=== PATIENT | female | born 1955 | race Caucasian/White ===

== ENCOUNTER 2017-02-10 10:46 | Day surgery (SDC) | payer OTHER ==
[~2017-02-10] VITALS: Ht 165.1 cm; Wt 93.0 kg
[~2017-02-10 10:46] MED LIST: BIOT5000 PO; HYDROmorphone 2 MG/ML VIAL IV PRN; IV RINGERS,LACTATED 1000ML 1,000 ML IV SCH; LIDOCAINE 1% 1 ML SYRINGE. ID PRN; LISI1TAB7 PO; MELO15TA6 PO; MORPHINE SULFATE 2 MG/ML DISP.SYRIN. IV PRN; NAPR500T3 PO; ONDANSETRON PF 4 MG/2 ML VIAL. IV PRN; PRAV40TA2 PO; PROCHLORPERAZINE 10 MG/2 ML VIAL. IV PRN; fentaNYL PF VIAL 100 MCG/2 ML VIAL IV PRN
[2017-02-10] MEDS ORDERED: LIDOCAINE 2% PF Vial for OR 5 ML VIAL. ONE (11:35)
[2017-02-10] MEDS ORDERED: fentaNYL PF VIAL 100 MCG/2 ML VIAL ONE ×2 (11:35→13:05)
[2017-02-10] MEDS ORDERED: PROPOFOL 20 ML IV ONE (11:35)
[2017-02-10] MEDS ORDERED: BUPIVACAINE MPF 0.5% 30 ML VIAL. ONE (12:04)
[2017-02-10] MEDS ORDERED: DEXAMETHASONE SOD PHOS 20 MG/5 ML VIAL. ONE (12:17)
[2017-02-10] MEDS ORDERED: SEVOFLURANE 16 TO 30 MINUTES. IH ONE (12:17)
[2017-02-10] MEDS ORDERED: ONDANSETRON PF 4 MG/2 ML VIAL. ONE (12:17)
[2017-02-10] MEDS ORDERED: PHENYLEPHRINE in 0.9% NACL PF 1 MG/10 ML DISP.SYRIN. IV ONE (12:50)
--- NOTE | 2017-02-10 13:01 | DISCH ---
DISCHARGE INSTRUCTIONS Condition on Discharge Condition on Discharge: Stable Activity After Discharge Activity Instructions for Disc: Other, see below Other activity instructions: slow increase to regular activity Bathing Instructions: Shower-keep dressing dry Weight Bearing Status after Di: Full weight bearing Diet after Discharge Diet after Discharge: Regular Wound Incision Care Wound/Incision Care: Ice to area for comfort, Keep wound elevated, Change dressing Other wound/incision instructi: remove dressing after 2 days may then get incision wet in shower Contacting the DR. after DC Call your doctor for: Concerns you may have Follow-Up Follow up with: Trudy 7-10 days SUZIE RAMESH MD Feb 10, 2017 13:01
[2017-02-10] MEDS ORDERED: HYDR-965 PO (13:02)
--- NOTE | 2017-02-10 13:07 | PDOC4 ---
Operative Note Operative Note Date of surgery: 02/10/2017 Preoperative diagnosis medial meniscal tear Postoperative diagnosis: Same Operative procedure: Right knee arthroscopy partial medial meniscectomy Surgeon: Trudy Anesthesia: GenAllie endotracheal Estimated blood loss: Less than 5 mL Complications: None Operative indications: Patient is a 61-year-old female with pain swelling and mechanical symptoms in the right knee unresponsive to nonoperative treatment MRI had confirmed the clinical suspicion of a medial meniscus tear. I gone over with her that while her x-rays looked good she seemed to be having mechanical symptoms probably due to the meniscus tear and went over the risks benefits postoperative course of possible arthroscopic treatment. She is aware that I can 't undo any degenerative changes present she may not receive complete pain relief from the procedure and there risks of infection medical or other anesthetic complications Thursday others. All her questions were answered and she verbalized understanding of the risks benefits postoperative course and the informed consent process and wishes to proceed with surgical evaluation and treatment. Operative text: Patient was identified procedure verified after adequate amounts of general endotracheal anesthesia were administered placed in the supine position on the operative table with a right thigh tourniquet placed in the arthroscopic leg cabrera and the right lower extremity prepped and draped in standard sterile fashion. After timeout was performed patient procedure identified and verified, the right lower extremity was exsanguinated by Esmarch bandage tourniquet inflated to 250 mmHg a lateral portal was established a medial portal established using spinal needle localization and the knee joint was systematically examined she had minimal chondromalacia at the patellofemoral joint which otherwise displayed good tracking some mild chondromalacia over the medial femoral condyle that did not require debridement she did have a posterior horn and root tear of the medial meniscus which was trimmed back to stable tissue using arthroscopic punch and shaver and radius appropriately. ACL and lateral meniscus were probed and found to be intact as was the lateral compartment cartilage. A small loose cartilage fragment was noted in the medial gutter and evacuated the knee again to her to make sure no further cartilage fragments were found the knee was drained of arthroscopic fluid portals closed with nylon suture total of 20 mL of half percent plain Marcaine were infused into the fat pad and joint areas sterile dressings were applied patient was extubated transferred to postop holding in stable condition having tolerated procedure well SUZIE RAMESH MD Feb 10, 2017 13:07
[2017-02-10] MEDS ORDERED: HYDROcodone/APAP 7.5/325MG 1 TAB TABLET PO ONE (14:15)
[2017-02-10 14:38] VITALS: BP 129/81
== END 2017-02-10 14:56 | disposition home or self-care (01) ==
LOC: SURG 10:46
PROVIDERS: ATTEND Orthopaedic Surgery
DX: S83.241A Other tear of medial meniscus, current injury, right knee, initial encounter (principal); M94.261 Chondromalacia, right knee; X58.XXXA Exposure to other specified factors, initial encounter; Y93.89 Activity, other specified; Y92.89 Other specified places as the place of occurrence of the external cause; Y99.9 Unspecified external cause status; E78.00 Pure hypercholesterolemia, unspecified; I10 Essential (primary) hypertension; E66.9 Obesity, unspecified; Z68.44 Body mass index [BMI] 60.0-69.9, adult; K21.9 Gastro-esophageal reflux disease without esophagitis; Z87.39 Personal history of other diseases of the musculoskeletal system and connective tissue; Z86.39 Personal history of other endocrine, nutritional and metabolic disease; Z88.6 Allergy status to analgesic agent; Z88.1 Allergy status to other antibiotic agents; Z88.2 Allergy status to sulfonamides; Z91.048 Other nonmedicinal substance allergy status
CPT/HCPCS: 29881; J0690; J1100; J2370; J2405; J2704; J3010; J3490; J2001